=== PATIENT | female | born 1955 | race Caucasian/White ===

== ENCOUNTER 2020-08-10 11:14 | Outpatient (CLI) | payer MEDICARE | END 2020-08-10 11:15 | disposition home or self-care (01) | LOC: CSHMAMMO 11:14 | PROVIDERS: ATTEND Obstetrics & Gynecology | DX: Z12.31 Encounter for screening mammogram for malignant neoplasm of breast (principal) | CPT/HCPCS: 77063; 77067 ==

== ENCOUNTER 2021-08-11 13:30 | Outpatient (CLI) | payer MEDICARE | END 2021-08-11 13:31 | disposition home or self-care (01) | LOC: CSHMAMMO 13:30 | PROVIDERS: ATTEND Obstetrics & Gynecology | DX: Z12.31 Encounter for screening mammogram for malignant neoplasm of breast (principal) | CPT/HCPCS: 77063; 77067 ==

== ENCOUNTER 2022-09-08 12:21 | Outpatient (CLI) | payer MEDICARE | END 2022-09-08 12:22 | disposition home or self-care (01) | LOC: CSHMAMMO 12:21 | PROVIDERS: ATTEND Obstetrics & Gynecology | DX: Z12.31 Encounter for screening mammogram for malignant neoplasm of breast (principal) | CPT/HCPCS: 77063; 77067 ==

== ENCOUNTER 2023-09-12 11:11 | Outpatient (CLI) | payer MEDICARE | END 2023-09-12 11:12 | disposition home or self-care (01) | LOC: CSHMAMMO 11:11 | PROVIDERS: ATTEND Obstetrics & Gynecology | DX: Z12.31 Encounter for screening mammogram for malignant neoplasm of breast (principal) | CPT/HCPCS: 77063; 77067 ==